=== PATIENT | female | born 1985 | race Caucasian/White ===

== ENCOUNTER → 2019-10-31 09:40 | Outpatient (BNVA) | payer SELFPAY | PROVIDERS: Family Provider Nurse Practitioner Family; PCP Nurse Practitioner Family; Visit Provider Nurse Practitioner Women's Health | DX: Z01.419 Encounter for gynecological examination (general) (routine) without abnormal findings (principal) | CPT/HCPCS: 88175 ==

== ENCOUNTER 2021-04-25 12:33 | Outpatient (CLI) | payer SELFPAY ==
--- NOTE | 2021-04-25 12:45 | US_ITS ---
WS: [id number] THYROID ULTRASOUND HISTORY: difficulty swallowing COMPARISON: 12/10/2017 Right lobe: 3.0 cm x 2.4 cm x 4.2 cm (w x ap x l). Volume: 15.8 cm3. Normal size gland. Mild coarse echotexture but no mass or nodule. No increased vascularity. Left lobe: 1.6 cm x 1.7 cm x 4.1 cm (w x ap x l). Volume: 5.7 cm3. Normal size gland. LEFT gland symmetrically smaller than the RIGHT but stable. Mild increased echogen icity. No mass or increased vascularity. No calcifications. Normal size cervical chain lymph nodes. Isthmus: 0.3 cm. US/US thyroid [id number] IMPRESSION: 1. Mildly coarsened heterogeneous gland but no mass or nodule. 2. No adenopathy.
== END 2021-04-25 12:34 | disposition home or self-care (01) ==
LOC: RAD 12:39
PROVIDERS: PCP Nurse Practitioner Family; Visit Provider Nurse Practitioner Family
DX: R13.10 Dysphagia, unspecified (principal)
CPT/HCPCS: 76536

== ENCOUNTER → 2023-01-16 09:00 | Outpatient (BNVA) | payer SELFPAY | PROVIDERS: PCP Nurse Practitioner Family; Visit Provider Nurse Practitioner Women's Health | DX: N39.0 Urinary tract infection, site not specified | CPT/HCPCS: 87086 ==

== ENCOUNTER → 2023-04-03 11:01 | Outpatient (BNVA) | payer SELFPAY | PROVIDERS: PCP Nurse Practitioner Family; Visit Provider Dermatology | DX: Z01.89 Encounter for other specified special examinations (principal) ==

== ENCOUNTER 2023-04-05 14:25 | Outpatient (CLI) | payer SELFPAY ==
--- NOTE | 2023-04-05 15:00 | USCV_ITS ---
Lisa Rodriguez Age: 37 Gender: F : 1985 Exam Date: 04/05/2023 14:42 Ordering Phys: Ishmael Florez MD ([email or web address]) Technologist: [email or web address] Exam Location: [facility] – [place] Indication: MVP BP: 155 / 88 HR: 94 Rhythm: Sinus Technical Quality: Poor because of body habitus MEASUREMENTS (Male / Female) Normal Values 2D ECHO LVOT Diameter 2.0 cm LV Ejection Fraction MOD 2C 67.5 % LV Ejection Fraction 2C AL 67.7 % LA Diameter 2.6 cm LA Width 2.8 cm LA Height 3.8 cm RA Width 2.9 cm RA Height 3.5 cm Aorta at Sinotubular Diameter 2.2 cm M-MODE Aortic Annulus Diameter 2.7 cm LA Ao Ratio MM 0.9 MV E Point Septal Separation 0.7 cm DOPPLER AV Peak Velocity 167.7 cm/s LVOT Peak Velocity 124.0 cm/s AV Area Cont Eq vti 2.6 cm squared AV Area Cont Eq pk 2.2 cm squared MV Peak Velocity 95.0 cm/s MV Area PHT 4.4 cm squared Mitral E to A Ratio 1.0 MV E' Velocity 49.5 cm/s Mitral E to MV E' Ratio 7.0 Mitral E to LV E' Lateral Ratio 6.4 Mitral E to LV E' Septal Ratio 7.6 TR Peak Velocity 153.5 cm/s TR Peak Gradient 9.4 mmHg TR Mean Velocity 118.5 cm/s TR Mean Gradient 6.0 mmHg TR Velocity Time Integral 35.1 cm TV Peak E Velocity 44.0 cm/s Right Atrial Pressure 8.0 mmHg Pulmonary Artery Systolic Pressu 17.4 mmHg PV Peak Velocity 136.0 cm/s RV Acceleration Time 0.2 s RV Ejection Time 0.3 s RV AcT/ET 0.5 FINDINGS Left Ventricle Normal left ventricular size and systolic function, EF 64 %. No regional wall motion abnormalities. Right Ventricle Normal right ventricular size and systolic function. Right Atrium The right atrium is normal in size. Left Atrium The left atrium is normal in size. Mitral Valve No gross abnormalities noted Aortic Valve No gross abnormalities noted Tricuspid Valve No gross abnormalities noted Pulmonic Valve Not visualized well Pericardium Normal pericardium without effusion. Aorta Normal ascending aorta dimension. IVC The inferior vena cava appears normal. CONCLUSIONS Normal left ventricular size and systolic function, EF 64 %. No regional wall motion abnormalities. Normal right ventricular size and systolic function. No gross valvular abnormalities Normal cardiac chamber sizes There is no pericardial effusion. There are no intracardiac masses. Compared to the study from 12/16/2015, there may not be a significant change Dr Ishmael Florez MD FAC (Electronically Signed) Final Date: 08 April 2023 08:36 S
== END 2023-04-05 14:26 | disposition home or self-care (01) ==
LOC: RAD 14:25
PROVIDERS: PCP Nurse Practitioner Family; Visit Provider Internal Medicine Cardiovascular Disease
DX: I34.1 Nonrheumatic mitral (valve) prolapse (principal); R00.2 Palpitations
CPT/HCPCS: 93306

== ENCOUNTER → 2024-03-11 16:07 | Outpatient (BNVA) | payer SELFPAY | PROVIDERS: PCP Nurse Practitioner Family; Visit Provider Nurse Practitioner Family | DX: E03.9 Hypothyroidism, unspecified (principal); E78.5 Hyperlipidemia, unspecified | CPT/HCPCS: 80053; 80061; 84443 ==

== ENCOUNTER → 2024-05-07 15:30 | Outpatient (BNVA) | payer SELFPAY | PROVIDERS: PCP Nurse Practitioner Family; Visit Provider Nurse Practitioner Women's Health | DX: Z00.00 Encounter for general adult medical examination without abnormal findings (principal) | CPT/HCPCS: 87624 ==

== ENCOUNTER → 2024-09-11 14:06 | Outpatient (BNVA) | payer SELFPAY | PROVIDERS: PCP Nurse Practitioner Family; Visit Provider Nurse Practitioner | DX: E03.9 Hypothyroidism, unspecified (principal) | CPT/HCPCS: 84443 ==

== ENCOUNTER → 2025-03-18 08:26 | Outpatient (BNVA) | payer BC, SELFPAY | PROVIDERS: PCP Nurse Practitioner Family; Visit Provider Nurse Practitioner Family | DX: E66.01 Morbid (severe) obesity due to excess calories (principal); Z68.41 Body mass index [BMI] 40.0-44.9, adult | CPT/HCPCS: 80053; 80061; 84443; 85025 ==